=== PATIENT | female | born 1955 | race Caucasian/White ===

== ENCOUNTER 2024-11-13 11:50 | Outpatient (CLI) | payer MEDICARE | END 2024-11-13 11:51 | disposition home or self-care (01) | LOC: CSHULT 11:50 | PROVIDERS: ATTEND Internal Medicine | DX: M25.471 Effusion, right ankle (principal) ==

== ENCOUNTER 2024-12-23 10:13 | Outpatient (CLI) | payer MEDICARE | END 2024-12-23 10:14 | disposition home or self-care (01) | LOC: CSHLAB 10:13 | PROVIDERS: ATTEND Obstetrics & Gynecology | DX: Z01.818 Encounter for other preprocedural examination (principal); N95.0 Postmenopausal bleeding | CPT/HCPCS: 80048; 80076; 85027; 85610; 85730; 86850; 86900; 86901; 93005; 93010 ==